=== PATIENT | female | born 1960 | race Hispanic/Latino ===

== ENCOUNTER 2023-11-26 17:30 | Emergency (ER) | payer SELFPAY ==
[2023-11-26 17:46] VITALS: BP 144/63; PULSE 104; RESP 18; TEMP 36.8; O2SAT 99
--- NOTE | 2023-11-26 17:54 | ED.GENADULT ---
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 Patient reports nausea, has vomited twice. Is able to eat and states pain not any worse when eating. Having normal bowel movements. No urinary symptoms. Denies chest pain, shortness of breath. all systems reviewed and negative except as noted above. Related Data Home Medications Medication Instructions Recorded Confirmed atorvastatin 80 mg tablet 80 mg PO DAILY 11/26/23 11/26/23 canagliflozin 300 mg tablet 300 mg PO DAILY 11/26/23 11/26/23 (Invokana) insulin detemir U-100 100 unit/mL 35 unit subcut DAILY 11/26/23 11/26/23 (3 mL) subcutaneous pen (Levemir FlexPen) losartan 25 mg tablet 25 mg PO DAILY 11/26/23 11/26/23 metformin 1,000 mg tablet 1,000 mg PO DAILY 11/26/23 11/26/23 Allergies Allergy/AdvReac Type Severity Reaction Status Date / Time No Known Allergies Allergy Verified 11/26/23 17:49 Review of Systems Review of Systems: CONSTITUTIONAL: Denies fever, chills, or sweats. EYES: Denies visual changes, redness, or discharge. ENT: Denies rhinorrhea, congestion, sore throat, or otalgia. CARDIOVASCULAR: Denies chest pain, palpitations, or edema. RESPIRATORY: Denies cough or dyspnea. GASTROINTESTINAL: Reports right upper quadrant and epigastric abdominal pain, nausea, vomiting. Denies diarrhea. GENITOURINARY: Denies dysuria or hematuria. SKIN: Denies rash or itching. MUSCULOSKELETAL: Denies back pain, joint pain, or myalgia. NEUROLOGIC: Denies headache, numbness, or weakness. PSYCHIATRIC: Denies anxiety or depression. All other systems reviewed are negative, except as documented in HPI. PMFSH Comments At time of signature, agree with nursing past medical, surgical, social and family history. There is no relevant family history pertinent to the presenting complaint. Exam Narrative: GENERAL: This is a well-nourished, well-developed patient, in no apparent distress. HEAD: normocephalic, atraumatic. EYES: PERRL. Sclera clear/white. Vision is grossly intact. EARS: External ears normal NOSE: External nose normal NECK: Neck supple, non-tender without lymphadenopathy, masses or thyromegaly. CARDIOVASCULAR: Regular rate and rhythm without murmurs, gallops, or rubs. RESPIRATORY: Clear to auscultation. Breath sounds equal bilaterally. No wheezes, rales, or rhonchi. GASTROINTESTINAL: Abdomen soft, tenderness to epigastric and right upper quadrant, distended Bowel sounds are active. No hepato-splenomegaly, or palpable masses. SKIN: warm, Dry, intact with no suspicious lesions or rash, good texture and turgor. NEURO: awake, alert, and oriented to person, place and time. There were no obvious focal neurologic abnormalities. EXTREMITIES: No joint tenderness, effusion, or edema noted. Course Course Level of Care: Express Care Visit Vital Signs Vital signs: Vital Signs Temperature 36.8 C 11/26/23 17:46 Pulse Rate 104 H 11/26/23 17:46 Respiratory Rate 18 11/26/23 17:46 Blood Pressure 144/63 H 11/26/23 17:46 Pulse Oximetry 99 11/26/23 17:46 Oxygen Delivery Room Air 11/26/23 17:46 Temperature 36.8 C 11/26/23 17:46 Pulse Rate 104 H 11/26/23 17:46 Respiratory Rate 18 11/26/23 17:46 Blood Pressure 144/63 H 11/26/23 17:46 Pulse Oximetry 99 11/26/23 17:46 Oxygen Delivery Room Air 11/26/23 17:46 reviewed Transfer Transfered to: [place] Transportation: Other ( Private car with her daughter) Transfer rationale: transferring patient to ER for labs, CT scan for right upper and epigastric abdominal pain Accepting physici
== END 2023-11-26 18:00 | disposition short-term general hospital (02) ==
PROVIDERS: Emergency Provider Nurse Practitioner Family
DX: R10.11 Right upper quadrant pain (principal); E11.9 Type 2 diabetes mellitus without complications; Z79.4 Long term (current) use of insulin
CPT/HCPCS: 99212; G0463

== ENCOUNTER 2023-11-26 18:22 | Observation (INO) | payer SELFPAY ==
--- NOTE | ~2023-11-26 | CT_ITS ---
CT of the Abdomen and Pelvis: Indication: Abdominal pain Technique: 2.5 mm axial scans were obtained through the abdomen and pelvis following intravenous adm inistration of 100 cc of Omnipaque 350. Dose reduction technique was used on this scan by utilizing a utomated exposure control and iterative reconstruction technique. The dose-length product (DLP) was 3 88.21 mGy-cm. Findings: Scans through the lung bases are unremarkable. The liver, spleen, pancreas, adrenals and kidneys are within normal limits. Gallbladder is distended, with wall thickening and possible minimal pericholecystic inflammatory change. Probable small stone at the gallbladder neck. There is mild periportal edema. No evidence of aortic aneurysm. No lymphade nopathy. No bowel obstruction or bowel wall thickening. There is no evidence to suggest acute appendicitis. Images through the pelvis were performed. Urinary bladder unremarkable. No adnexal mass seen. No asci lucia. Impression: Distended gallbladder with wall thickening and mild pericholecystic inflammatory change is highly nando picious for acute cholecystitis. Probable small stone at the gallbladder neck. Reviewed, dictated and finalized at [facility]. Impression: Distended gallbladder with wall thickening and mild pericholecystic inflammator y change is highly suspicious for acute cholecystitis. Probable small stone at the gallbladder neck.
[2023-11-26 18:30] VITALS: BP 140/62; PULSE 100; RESP 19; TEMP 36.6; O2SAT 100
[2023-11-26 21:27] LABS: Basophils Percent Auto 0.3 % (0.2-1.2); Eosinophils Absolute Auto 0.1 K/mm3 (0-0.3); Eosinophils Percent Auto 0.8 % (0-4.4); Hemoglobin 10.4 g/dL (12.0-15.0); Immature Granulocyte Absolute 0.04 K/mm3 (0.00-0.031); Immature Granulocyte Percent A 0.3 % (0-0.5); Lymphocytes Absolute Auto 2.92 K/mm3 (0.9-3.2); Lymphocytes Percent Auto 22.7 % (18.3-44.2); Mean Corpuscular HGB Conc 31.5 g/dl (32-36); Mean Corpuscular Hemoglobin 26.5 pg (26-34); Mean Platelet Volume 10.4 fl (7.4-10.4); Monocytes Absolute Auto 1.1 K/mm3 (0.1-0.6); Monocytes Percent Auto 8.5 % (2.6-8.5); Neutrophils Absolute Auto 8.7 K/mm3 (1.3-6.7); Neutrophils Percent Auto 67.4 % (45.5-73.1); Platelet Count Result 203 k/mm3 (150-375); Red Blood Count 3.93 M/mm3 (4.2-5.4); White Blood Count 12.9 K/mm3 (4.5-10.0)
[2023-11-26 21:37] LABS: Alanine Aminotransferase 114 U/L (6-35); Albumin Level 4.1 g/dL (3.5-5.1); Alkaline Phosphatase 96 U/L (38-126); Anion Gap 9 mmol/L (4-12); Aspartate Amino Transferase 85 U/L (14-36); Bilirubin,Total 0.7 mg/dL (0.2-1.3); Blood Urea Nitrogen 8 mg/dL (7-17); Carbon Dioxide 23 mmol/L (22-30); Chloride 103 mmol/L (98-107); Estimated CRCL calculation 102 ml/min; Estimated Glomerular Filt Rate > 60; Glucose 211 mg/dL (65-110); Lipase 166 U/L (23-300); Potassium 3.8 mmol/L (3.4-5.0); Sodium 135 mmol/L (137-145)
[2023-11-26 23:41] LABS: Appearance Urine Clear (Clear); Bacteria Urine None Seen /hpf; Bilirubin Urine Negative (Negative); Blood Urine Negative (Negative); Color Urine Yellow (Yellow); Glucose Urine UA Negative (Negative); Ketones Urine Negative (Negative); Leukocyte Esterase Ur Negative LEU/UL (Negative); Nitrate Urine Negative (Negative); Non Pathogenic Casts 0-2; Protein Urine Trace mg/dL (Negative); RBC Urine 0-2 /hpf (0-2); Specific Grav Ur 1.013 (1.001-1.035); Squamous Epithelial Cell Urine None Seen /hpf (Few); WBC Urine 0-5 /hpf (0-3)
[2023-11-26 23:47] LABS: Add Urine Microscopic? YES
[2023-11-26 23:49] VITALS: BP 131/59; PULSE 90; RESP 19; O2SAT 98
[2023-11-27] MEDS: ONDANSETRON INJ 4 MG/2 ML VIAL IV PUSH ×2 (00:10→08:30)
[2023-11-27] MEDS: SODIUM CHLORIDE 0.9% IV 1,000 ML 999 ML IV CONT (00:10)
[2023-11-27] MEDS: MORPHINE SULFATE (*CRX) 4 MG/ML INJ IV PUSH ×3 (00:10→11:14)
--- NOTE | 2023-11-27 00:53 | ED.ABDPAIN ---
HPI - Abdominal Pain General Chief Complaint: Abdominal Pain Stated Complaint: abdominal pain Time Seen by Provider: 11/26/23 23:07 Source: patient and family Mode of arrival: ambulatory Limitations: no limitations and language barrier History of Present Illness HPI narrative: Patient is a 63-year-old female who presents the ED with report of right-sided abdominal pain. Patient is primarily Georgian speaking. Son at bedside assisted in translation. [employer] public health representative was offered and declined. She reports having pain in her R upper abdomen radiating around to her back since Sunday night. States pain has been constant. No aggravating or alleviating factors. No aggravation with eating. Denies nausea, vomiting, diarrhea, constipation, urinary complaints, fevers. Has never had similar pain. Related Data Home Medications Medication Instructions Recorded Confirmed atorvastatin 80 mg tablet 80 mg PO DAILY 11/26/23 11/26/23 canagliflozin 300 mg tablet 300 mg PO DAILY 11/26/23 11/26/23 (Invokana) insulin detemir U-100 100 unit/mL 35 unit subcut DAILY 11/26/23 11/26/23 (3 mL) subcutaneous pen (Levemir FlexPen) losartan 25 mg tablet 25 mg PO DAILY 11/26/23 11/26/23 metformin 1,000 mg tablet 1,000 mg PO DAILY 11/26/23 11/26/23 Allergies Allergy/AdvReac Type Severity Reaction Status Date / Time No Known Allergies Allergy Verified 11/27/23 03:34 Review of Systems Review of Systems: CONSTITUTIONAL: Denies fever, chills, or sweats. CARDIOVASCULAR: Denies chest pain. RESPIRATORY: Denies dyspnea. GASTROINTESTINAL: See HPI GENITOURINARY: Denies dysuria or hematuria. NEUROLOGIC: Denies headache, dizziness, numbness, or weakness. All systems reviewed & are unremarkable except as noted in HPI and below Exam Narrative: GENERAL: Well appearing, well-nourished, non-toxic, in no acute distress. HEAD: Normocephalic, atraumatic. RESPIRATORY: Airway patent, respirations nonlabored. Clear to auscultation bilaterally, no rales, rhonchi, wheezing. CARDIOVASCULAR: Regular rate and rhythm without murmurs, rubs, or gallops. ABDOMINAL: Soft, mild tenderness in R mid abdomen, more focal tenderness in RUQ, no rebound, nondistended. Normoactive BS. MUSCULOSKELETAL: Moves all extremities. No gross deformities. SKIN: Warm, dry, normal color. NEURO: A&O X3. Speech clear. PSYCHIATRIC: Appropriate mood and affect. Normal interaction. Course Vital Signs Vital signs: Vital Signs Temperature 97.8 F 11/26/23 18:30 Pulse Rate 100 11/26/23 18:30 Respiratory Rate 19 11/26/23 18:30 Blood Pressure 140/62 11/26/23 18:30 Pulse Oximetry 100 11/26/23 18:30 Oxygen Delivery Room Air 11/26/23 18:30 Temperature 97.8 F 11/26/23 18:30 Pulse Rate 94 11/27/23 03:33 Respiratory Rate 19 11/27/23 03:33 Blood Pressure 134/65 11/27/23 03:33 Pulse Oximetry 100 11/27/23 03:33 Oxygen Delivery Room Air 11/26/23 18:30 MDM - Abdominal Pain MDM Narrative Medical decision making narrative: Patient presented to ED with 2 day history of right upper quadrant abdominal pain. No history of similar. No significant associated symptoms or aggravating factors. Vital signs stable upon arrival. Patient in no acute distress. CBC with white blood cell count of 12.9. Mild anemia noted. No recent records to compare to. Patient denies any acute bleeding. CMP with stable electrolytes, stable kidney function. Blood glucose 211. AST and ALT mildly elevated. Normal lipase. Normal bilirubin. Urinalysis without evidence of infection. CT scan of abdomen pelvis was obtained and shows findings consistent with acute cholecystitis. 4mm stone in neck of GB. No ductal dilation. Consistent with clinical picture. Zosyn started in the ED. Discussed case with Dr. Linton, gen surg, agrees w/ plan. Will consult. Will admit under hospitalist service given comorbidities. Discussed case with Dr. Buck, hospitalist, accepted patient for admis
[2023-11-27 00:58] VITALS: BP 144/62; PULSE 102; RESP 18; O2SAT 97
[2023-11-27 03:33] VITALS: BP 134/65; PULSE 94; RESP 19; O2SAT 100
[2023-11-27] MEDS: PIPERACILLN/TAZ 3.375GM/NS50ML 3.375 GM/50 ML BAG IVPB ×3 (03:35→17:44)
[2023-11-27 05:35] VITALS: BP 128/69; PULSE 92; RESP 18; TEMP 36.4; O2SAT 99
--- NOTE | 2023-11-27 05:36 | ADMGEN ---
This patient, Mireya Montesinos, was admitted to [facility] Surg Room 310-01. Patient/family oriented to hospital policies and general routines including ID bracelet, bed and alarms, visiting hours, pain management, procedures, bathroom and other care routines, personal items, smoking policy, room service/diet, and visiting hours. Information on how to activate the Rapid Response Team has been discussed. Patient/Family are encouraged to report perceived risks to care and to ask questions if they do not understand what they are told or what they should do.
[2023-11-27] MEDS: SODIUM CHLORIDE 0.9% IV 1,000 ML 100 ML IV CONT ×2 (06:03→17:44)
[2023-11-27 07:49] LABS: Basophils Percent Auto 0.3 % (0.2-1.2); Eosinophils Absolute Auto 0.2 K/mm3 (0-0.3); Eosinophils Percent Auto 1.7 % (0-4.4); Hematocrit 32.2 % (37.0-47.0); Hemoglobin 9.7 g/dL (12.0-15.0); Immature Granulocyte Absolute 0.02 K/mm3 (0.00-0.031); Immature Granulocyte Percent A 0.2 % (0-0.5); Lymphocytes Absolute Auto 2.26 K/mm3 (0.9-3.2); Lymphocytes Percent Auto 19.7 % (18.3-44.2); Mean Corpuscular HGB Conc 30.1 g/dl (32-36); Mean Corpuscular Hemoglobin 25.9 pg (26-34); Mean Corpuscular Volume 86.1 fl (80-100); Mean Platelet Volume 10.4 fl (7.4-10.4); Monocytes Absolute Auto 0.9 K/mm3 (0.1-0.6); Monocytes Percent Auto 8.2 % (2.6-8.5); Neutrophils Percent Auto 69.9 % (45.5-73.1); Platelet Count Result 208 k/mm3 (150-375); Red Blood Count 3.74 M/mm3 (4.2-5.4); Red Cell Distribution Width 16.8 % (11.5-14.5); White Blood Count 11.5 K/mm3 (4.5-10.0)
[2023-11-27 08:04] LABS: Alanine Aminotransferase 105 U/L (6-35); Albumin Level 3.8 g/dL (3.5-5.1); Alkaline Phosphatase 90 U/L (38-126); Anion Gap 8 mmol/L (4-12); Aspartate Amino Transferase 77 U/L (14-36); Bilirubin,Total 0.9 mg/dL (0.2-1.3); Blood Urea Nitrogen 6 mg/dL (7-17); Calcium 8.9 mg/dL (8.4-10.2); Carbon Dioxide 22 mmol/L (22-30); Chloride 108 mmol/L (98-107); Estimated CRCL calculation 102 ml/min; Estimated Glomerular Filt Rate > 60; Glucose 153 mg/dL (65-110); Lipase 83 U/L (23-300); Potassium 3.7 mmol/L (3.4-5.0); Sodium 138 mmol/L (137-145)
--- NOTE | 2023-11-27 09:35 | PM.CNGS ---
Assessment and Plan Assessment and plan (1) Acute cholecystitis: Code(s): K81.0 - Acute cholecystitis Status: Acute Assessment and Plan: CT with findings consistent with acute cholecystitis with a small gallstone in the neck of the gallbladder. This is consistent with her clinical picture. She continues to have abdominal pain and nausea this morning. Discussed treatment options with the patient including nonoperative management with dietary modifications versus proceeding with a laparoscopic cholecystectomy under general anesthesia. The patient would prefer to proceed with surgery, which seems reasonable given persistent symptoms and likelihood of failing conservative management. Description of the procedure, risks, benefits, alternatives, and expected recovery were discussed with the patient in detail. We discussed the risks of bile leak and bile duct injury, liver/bowel injury, bleeding, and infection. Also discussed the possibility of having to convert to an open procedure if necessary. This conversation was done with the video color straining bag washer since she is Dominican speaking. Will continue IV fluids, NPO status, analgesics as needed, and try adding her onto the surgery schedule. (2) Insulin dependent type 2 diabetes mellitus: Code(s): E11.9 - Type 2 diabetes mellitus without complications; Z79.4 - shelter (current) use of insulin Status: Acute (3) Hypertension: Code(s): I10 - Essential (primary) hypertension Status: Acute Plan I have discussed the patient's case and plan of care with Dr. Linton. Thank you for allowing us to see the patient in consultation and we will continue to follow along with you. History of Present Illness Consult details Consult date: 11/27/23 Reason for consult: other (Acute cholecystitis) Requesting physician: Raven Smith PA-C Narrative: This is a 63-year-old Dominican-speaking female with a history of hypertension and insulin-dependent type 2 diabetes mellitus, who presented to the [place] urgent care yesterday for right upper quadrant abdominal pain. She was then directed to the ER for evaluation last night. The video color straining bag washer was utilized for my entire conversation with the patient. She reports eating pizza for dinner Sunday night, 2 days ago. Shortly after, she developed right upper quadrant abdominal pain. She denies ever having this pain in the past. She reports associated nausea and nonbilious, nonbloody vomiting. Her abdominal pain has remained constant since that time. Her pain is aggravated by deep breathing. In the ED, [place] [address], AST 85, ALT 114, total bilirubin 0.7, alk-phos 96, lipase normal. UA negative. CT scan of the abdomen and pelvis showed a distended gallbladder with wall thickening and mild pericholecystic inflammatory change, with a probable small stone at the gallbladder neck, which is highly suspicious for acute cholecystitis. She was admitted to the hospitalist service and started on IV Zosyn. Our service was consulted for acute cholecystitis. She is now seen on medical floor with her family at the bedside. He is to have significant right upper quadrant pain and again received IV morphine just before my exam to help control her pain. Review of Systems Review of Systems: All systems reviewed & are unremarkable except as noted in HPI and below PMFSH Past Medical History Medical History Hyperlipidemia Hypertension Insulin dependent type 2 diabetes mellitus Surgical History Surgical History History of tubal ligation Social History Social History Smoking status: Never smoker Alcohol intake: never Substance use: never Do You Feel Safe in your Home?: Yes Lack of Transportation: No Lack of Food: Never True Current Hous
--- NOTE | 2023-11-27 09:44 | ECG_ITS ---
SEE SCANNED COPY FOR CONFIRMED REPORT. MTDD
[2023-11-27 11:18] LABS: Glucose Point of Care 113 mg/dl (65-105)
--- NOTE | 2023-11-27 12:21 | PM.IMHP ---
H&P: HPI History of Present Illness Date/Time: 11/27/23 12:21 Chief Complaint: Abdominal pain Narrative: 63yo female with DM and HTN who is mostly Croatian-speaking only here for abdominal pain. The majority of the history is obtained through an officer lieutenant/family in the room. Patient began to right upper quadrant abdominal pain radiating to the back on November 24. The pain began after eating pizza. She has never had this before. She had nausea and vomiting. She also felt feverish with chills. Pain was persistent and constant. She was able to eat over the next 24 hours without significant change in the pain. No diarrhea, dysuria, hematuria, melena or hematochezia. She presented to the emergency room for evaluation. In the emergency room, she was hemodynamically stable. White count was 12.9 K. hemoglobin was 10.4. Sodium 135 with glucose 211. AST 85, ALT 14 otherwise LFTs normal. Lipase 166. UA was negative. CT scan of the abdomen and pelvis showed distended gallbladder with wall thickening and mild pericholecystic inflammatory changes that is highly suspicious for acute cholecystitis. There is probably a small stone in the gallbladder neck. She was given morphine and Zofran. She was started on IV fluids. Blood cultures were collected and started on Zosyn. She is admitted for further care. Review of Systems Review of Systems: All systems reviewed & are unremarkable except as noted in HPI and below PMFSH Past Medical History Medical History Hyperlipidemia Hypertension Insulin dependent type 2 diabetes mellitus Surgical History Surgical History History of tubal ligation Family History Family History Mother Diabetes mellitus Social History Social History (Updated 11/27/23 @ 12:33 by Jaime Kong MD) Social History: Denies hx of tobacco, alcohol or illicit drug use. Lives at home with her and son. Full code. She nominates her son to be the one who would make medical decisions for her if she is unable. Smoking status: Never smoker Alcohol intake: never Substance use: never Do You Feel Safe in your Home?: Yes Lack of Transportation: No Lack of Food: Never True Current Housing: I Have Housing Concerned About Future Housing: No Difficulty Paying Gas/Electric Bills: No Difficulty Paying for Meds: No Currently Unemployed: No Education: Grade School Difficulty w/ Childcare or Family Care: No Spiritual care concerns: No Meds Home Medications and Allergies Home Medications Medication Instructions Recorded Confirmed Type atorvastatin 80 mg tablet 80 mg PO HS 11/26/23 11/27/23 History canagliflozin 300 mg tablet 300 mg PO DAILY 11/26/23 11/27/23 History (Invokana) insulin detemir U-100 100 unit/mL 35 unit subcut HS 11/26/23 11/27/23 History (3 mL) subcutaneous pen (Levemir FlexPen) losartan 25 mg tablet 25 mg PO DAILY 11/26/23 11/27/23 History metformin 1,000 mg tablet 1,000 mg PO BID 11/26/23 11/27/23 History insulin aspart U-100 100 unit/mL 15 unit subcut TIDWM 11/27/23 11/27/23 History (3 mL) subcutaneous pen (Novolog FlexPen U-100 Insulin aspart) liraglutide 0.6 mg/0.1 mL (18 mg/3 1.8 mg subcut DAILY 11/27/23 11/27/23 History mL) subcutaneous pen injector (Victoza 3-Francisco J) Allergies Allergy/AdvReac Type Severity Reaction Status Date / Time No Known Allergies Allergy Verified 11/27/23 03:34 Vital Signs Vital Signs - 24 hr 11/26/23 18:30 11/26/23 23:49 11/27/23 00:58 Temperature 97.8 F Pulse Rate 100 90 102 H Respiratory Rate 19 19 18 Blood Pressure 140/62 131/59 L 144/62 H Pulse Oximetry 100 98 97 Oxygen Delivery Room Air 11/27/23 03:33 11/27/23 05:35 11/27/23 08:00 Temperature 97.6 F Pulse Rate 94 92 Respiratory Rate 19 18 Blood Press
[2023-11-27 14:00] VITALS: BP 132/61; PULSE 83; RESP 16; TEMP 36.3; O2SAT 97
[2023-11-27] MEDS: MORPHINE SULFATE (*CRX) 2 MG/ML INJ IV PUSH (14:38)
[2023-11-27 16:44] LABS: Glucose Point of Care 110 mg/dl (65-105)
[2023-11-27 21:15] VITALS: BP 144/62; PULSE 96; RESP 18; TEMP 38.3; O2SAT 93
[2023-11-27 22:00] VITALS: TEMP 37.2
[2023-11-28] VITALS (11 sets, daily range): BP systolic 99–147; BP diastolic 48–65; PULSE 81–102; RESP 14–19; TEMP 36.1–36.6; O2SAT 93–100
[2023-11-28 00:06] LABS: Glucose Point of Care 168 mg/dl (65-105)
[2023-11-28] MEDS: PIPERACILLN/TAZ 3.375GM/NS50ML 3.375 GM/50 ML BAG IVPB ×2 (00:15→05:14)
[2023-11-28] MEDS: LACTATED RINGERS 1,000 ML 30 ML IV CONT ×2 (07:30→09:37)
[2023-11-28 08:08] LABS: Glucose Point of Care 138 mg/dl (65-105)
--- NOTE | 2023-11-28 08:10 | WPDHPUPDATE1 ---
History and Physical Update Update Date/Time: 11/28/23 08:10 History and Physical has been reviewed, including an updated exam of the patient. There are NO changes in the patient's condition. Risks, benefits, and alternatives have been discussed and questions answered. Patient agrees to proceed with procedure.
--- NOTE | 2023-11-28 08:21 | WPDANESEPPF ---
Anes - Initial Pre Proc Eval Procedure: Operation Date: 11/28/23 08:30 Proposed Procedures p Laparoscopic Cholecystectomy,Possible Open - Marcello Linton DO Date/Time: 11/28/23 08:21 Surgeon: Mirian Buck DO Pre Op Diagnosis: Acute Cholecystitis Patient Data Age: 63 Gender: F Height: 1.52 m Weight: 66 kg Last Vital Signs Temp 36.2 C L 11/28/23 07:45 Pulse 82 11/28/23 07:45 Resp 14 11/28/23 07:45 BP 147/61 H 11/28/23 07:45 Pulse Ox 100 11/28/23 07:45 O2 Del Method Room Air 11/28/23 07:45 Allergies Allergy/AdvReac Type Severity Reaction Status Date / Time No Known Allergies Allergy Verified 11/27/23 03:34 Home Medications Medication Instructions Recorded Confirmed Type atorvastatin 80 mg tablet 80 mg PO HS 11/26/23 11/27/23 History canagliflozin 300 mg tablet 300 mg PO DAILY 11/26/23 11/27/23 History (Invokana) insulin detemir U-100 100 unit/mL 35 unit subcut HS 11/26/23 11/27/23 History (3 mL) subcutaneous pen (Levemir FlexPen) losartan 25 mg tablet 25 mg PO DAILY 11/26/23 11/27/23 History metformin 1,000 mg tablet 1,000 mg PO BID 11/26/23 11/27/23 History insulin aspart U-100 100 unit/mL 15 unit subcut TIDWM 11/27/23 11/27/23 History (3 mL) subcutaneous pen (Novolog FlexPen U-100 Insulin aspart) liraglutide 0.6 mg/0.1 mL (18 mg/3 1.8 mg subcut DAILY 11/27/23 11/27/23 History mL) subcutaneous pen injector (Victoza 3-Francisco J) Laboratory Tests 11/27/23 11/27/23 11/27/23 07:46 11:14 16:41 POC Capillary Glucose 113 H mg/dl 110 H mg/dl (65-105) (65-105) Hemoglobin A1c 7.0 H % (<5.7) 11/27/23 11/28/23 23:57 08:05 POC Capillary Glucose 168 H mg/dl 138 H mg/dl (65-105) (65-105) Hemoglobin A1c Patient hx anesthesia problems: none Family hx anesthesia problems: none Results Review: All pre-operative results and documents have been reviewed as part of the pre-operative evaluation. [facility] Past Medical History Medical History Hyperlipidemia Hypertension Insulin dependent type 2 diabetes mellitus Surgical History Surgical History History of tubal ligation Family History Family History Mother Diabetes mellitus Social History Social History Social History: Denies hx of tobacco, alcohol or illicit drug use. Lives at home with her and son. Full code. She nominates her son to be the one who would make medical decisions for her if she is unable. Smoking status: Never smoker Alcohol intake: never Substance use: never Do You Feel Safe in your Home?: Yes Lack of Transportation: No Lack of Food: Never True Current Housing: I Have Housing Concerned About Future Housing: No Difficulty Paying Gas/Electric Bills: No Difficulty Paying for Meds: No Currently Unemployed: No Education: Grade School Difficulty w/ Childcare or Family Care: No Spiritual care concerns: No Anes - Eval Final PreProcedure Day of Procedure 11/28/23 08:21 Patient weight: overweight Heart: regular rate and rhythm Lungs: clear to auscultation Airway: Mallampati scale class II Neurological: alert and oriented Last oral intake: >/= 8 hours ASA classification: III Emergent: no Anesthetic plan: proceed Anesthesia type and monitoring: general ETT and standard monitoring Results Review: All pre-operative results and documents have been reviewed as part of the pre-operative evaluation. Informed Consent: The patient's anesthetic plan and its attendant risks and benefits were discussed with the patient/family/POA. Questions were solicited and answers provided to the satisfaction of the patient/family/POA.
[2023-11-28] MEDS: BUPIVACAINE/EPINEPHRINE 0.5% 50 ML VIAL 30 ML INFILTRATE (08:58)
--- NOTE | 2023-11-28 09:36 | W.PM.PROC2 ---
Procedure Note - Detailed Date of Procedure 11/28/23 Pre-op Diagnosis Acute Cholecystitis Post-op Diagnosis Same Procedure Performed Laparoscopic Cholecystectomy Surgeon Marcello Linton, DO Anesthesia General and Local (0.5% bupivacaine) Indications This is a 63-year-old woman who presented to the emergency department with right upper quadrant pain. Her workup in the emergency department showed an elevated white blood count and findings on CT consistent with acute calculous cholecystitis. She was admitted for further treatment. Discussions were made with the patient about treatment options and decision was made to proceed with laparoscopic cholecystectomy, possible open. Findings Laparoscopic cholecystectomy was performed. The patient's gallbladder appeared distended with gallbladder wall thickening, hyperemia, and edema. The gallbladder had to be decompressed in order to grasp it. The cystic duct appeared normal in size. The gallbladder was removed and sent to the lab for pathology. There was some bleeding along the liver bed as the gallbladder was removed secondary to all of the inflammation. Surgiflo was sprayed around this region to help with hemostasis. Description of Procedure Procedure as well as risks, benefits, and alternatives were discussed with patient. Written consent was obtained and placed in chart prior to procedure. The patient was brought back to surgical suite. Patient was placed in supine position on operating table. Time-out was done to confirm patient and procedure. Patient was then intubated by the anesthesia department. Abdomen was prepped and draped in sterile fashion using chlorhexidine prep. 0.5% bupivacaine with epinephrine was infiltrated at each site of incision. A 5 millimeter incision was made near the umbilicus, and a 5 millimeter Optiview trocar was advanced through the abdominal layers under direct visualization. Once inside the abdominal cavity, carbon dioxide was insufflated to create a pneumoperitoneum. The camera was inserted and the abdomen was inspected. No immediate abnormalities were identified. The patient was placed in reverse Trendelenburg position and rotated slightly to the left. An 11 millimeter incision was made in the subxiphoid region, and an 11 millimeter trocar was inserted under direct visualization. Two 5 millimeter incisions were made in the right upper quadrant, and two 5 millimeter trocars were inserted under direct visualization. The gallbladder was identified and grasped at the fundus and retracted superiorly. It was then grasped at the infundibulum retracted laterally. Careful dissection around the neck of the gallbladder was performed using blunt dissection with a [place] grasper and hook electrocautery. The cystic duct was identified, and a window was created behind it. The cystic artery was also identified and a window was created behind it. The critical view of safety was identified, visualizing the cystic duct running directly into the neck of the gallbladder, and the cystic artery running directly into the wall of the gallbladder. A 5 millimeter clip junior net developer was then used to place 2 clips proximally and 1 clip distally on both the cystic duct and cystic artery. They were then both transected using endoscopic scissors. Once safely away from the khushi hepatitis, the gallbladder was dissected free from the liver bed using hook electrocautery. Hemostasis was achieved along the way. The gallbladder was removed completely and then removed through the subxiphoid port. The liver bed was then inspected. Hemostasis appeared adequate, and our clips appeared secure. The area was gently irrigated with sterile saline. No other abnormalities were seen. The patient was flattened out in bed, and 1 final inspection was made around the abdominal cavity. The subxiphoid port was removed, and a Ayaz Aracelis cone was used to approximate the fascia with an 0-Vicryl simple interrupted suture
[2023-11-28 09:44] LABS: Glucose Point of Care 153 mg/dl (65-105)
[2023-11-28] MEDS: fentaNYL CITRATE INJ (*CRX) 100 MCG/2 ML VIAL 25 MCG IV PUSH ×2 (09:57→10:05)
[2023-11-28] MEDS: LACTATED RINGERS 1,000 ML 100 ML IV CONT (10:49)
[2023-11-28] MEDS: MORPHINE SULFATE (*CRX) 4 MG/ML INJ IV PUSH (10:51)
[2023-11-28 11:23] LABS: Glucose Point of Care 165 mg/dl (65-105)
--- NOTE | 2023-11-28 13:35 | PM.IMPN ---
Progress Note: A&P Assessment and Plan (1) Acute cholecystitis: Code(s): K81.0 - Acute cholecystitis Status: Acute Assessment and Plan: Patient presents with abdominal pain after eating a fatty meal and found to have findings consistent with acute cholecystitis. She also has a 4 mm stone in the neck of the gallbladder which is probably causing her consistent right upper quadrant pain. LFTs have improved on repeat. White count is trending downward. Blood cultures are pending. General surgery has been consulted and patient now s/p laparoscopic cholecystectomy earlier today. She has tolerated the procedure well. Start diet when okay with surgery. Monitor fever curve. Contineu Zosyn (2) Insulin dependent type 2 diabetes mellitus: Code(s): E11.9 - Type 2 diabetes mellitus without complications; Z79.4 - intermediate (current) use of insulin Status: Acute Assessment and Plan: Patient with diabetes and takes Invokana, Levemir, metformin, Victoza and NovoLog at mealtimes. A1c 7.0. The patient's blood glucose was reviewed on 11/27 Glucose remains well controlled. Continue AccuCheks covering with sliding scale. Hypoglycemia protocol available as needed. Continue to monitpr (3) Hypertension: Code(s): I10 - Essential (primary) hypertension Status: Acute Assessment and Plan: Patient's blood pressure was reviewed on 11/27 Blood pressure remains well controlled. Will continue to monitor Plan DVT prophylaxis -SCDs Code status -full Subjective Date/time seen: 11/28/23 13:35 Interval history: 63yo female with DM and HTN who is mostly Yakut-speaking only here for abdominal pain.?? Back from surgery. Had fever overnight. Abd pain mild. No CP or SOB. No n/v. No flatus or BM since surgery Exam Narrative: Tm 101.0 97.2 122/50 96 18 96% ra Gen - NARD Chest - CTA bilaterally CV - RRR S1/S2 Abd - soft. Multiple small incisions that are clean, dry and intact. Hypoactive bowel sounds. Ext - no pedal edema Psych - normal mood and affect. Skin - warm and dry. Objective Data Vital Signs Vital Signs: Vital Signs - 24 hr 11/27/23 14:00 11/27/23 21:15 11/27/23 22:00 Temperature 97.3 F L 101.0 F H 98.9 F Pulse Rate 83 96 Respiratory Rate 16 18 Blood Pressure 132/61 144/62 H Pulse Oximetry 97 93 Oxygen Delivery Oxygen Flow Rate 11/28/23 04:15 11/28/23 07:45 11/28/23 09:37 Temperature 97.1 F L 97.2 F L Pulse Rate 95 82 87 Respiratory Rate 16 14 18 Blood Pressure 138/58 L 147/61 H 99/58 L Pulse Oximetry 95 100 98 Oxygen Delivery Room Air Simple Face Mask Oxygen Flow Rate 10 11/28/23 09:45 11/28/23 10:00 11/28/23 10:15 Temperature Pulse Rate 94 102 H 100 Respiratory Rate 19 16 18 Blood Pressure 117/61 103/57 L 122/58 L Pulse Oximetry 99 94 93 Oxygen Delivery Room Air Room Air Room Air Oxygen Flow Rate 11/28/23 10:38 11/28/23 11:10 11/28/23 12:10 Temperature 97 F L 97.2 F L 97.2 F L Pulse Rate 100 92 96 Respiratory Rate 18 18 18 Blood Pressure 131/50 L 124/51 L 122/50 L Pulse Oximetry 96 94 96 Oxygen Delivery Oxygen Flow Rate Intake/Output Intake/Output: Intake & Output 11/25/23 11/26/23 11/27/23 11/28/23 23:59 23:59 23:59 23:59 Intake Total 2390 1326.5 Output Total 800 Balance 2390 526.5 Meds/Results Medications: Active Medications Generic Name Dose Route Start Last Admin Trade Name Freq PRN Reason Stop Dose Admin Acetaminophen 500 mg 11/28/23 10:25 Acetaminophen 500 Mg Tablet PO Q6H PRN Pain Rated 1-3 Hydrocodone Bitart/Acetaminophen 1 tab 11/28/23 10:25 Hydrocodone/Acetaminophen (*Crx) 5-325 Mg Tablet PO Q4H PRN Pain Rated 4-6 Hydrocodone Bitart/Acetaminophen 1 tab 11/28/23 10:25 Hydrocodone/Acetaminophen (*Crx) 7.5-325 Mg Tablet PO Q4H PRN Pain Rated 7-10 Dextrose 12.5 gm 11/27/23 12:39 Dextrose 50% 25 Gm/50 Ml Syr
[2023-11-28] MEDS: HYDROcodone/acetaminophen (*CRX) 7.5-325 MG TABLET 1 TAB PO ×2 (14:56→20:12)
[2023-11-28 16:58] LABS: Glucose Point of Care 254 mg/dl (65-105)
--- NOTE | 2023-11-28 19:43 | PM.DS ---
DS: Admitting Diagnosis Discharge Date 11/28/23 Admitting Diagnosis Abdominal pain DS: Discharge Diagnosis Discharge Diagnosis (1) Acute cholecystitis: Code(s): K81.0 - Acute cholecystitis Status: Acute (2) Insulin dependent type 2 diabetes mellitus: Code(s): E11.9 - Type 2 diabetes mellitus without complications; Z79.4 - halfway (current) use of insulin Status: Acute (3) Hypertension: Code(s): I10 - Essential (primary) hypertension Status: Acute DS: Summary Hospital Course Reason for hospitalization: 63yo female with DM and HTN who is mostly Thai-speaking only here for abdominal pain.?? Please see H&P for details Hospital Course: Patient presents with abdominal pain after eating a fatty meal and found to have findings consistent with acute cholecystitis.? She also has a 4 mm stone in the neck of the gallbladder which is probably causing her consistent right upper quadrant pain.? LFTs have improved on repeat.? White count trended downward.? Blood cultures are NGTD. General surgery was consulted and patient underwent laparoscopic cholecystectomy on 11/28/23.? She tolerated the procedure well. She was started on clear liquids and easily advanced to low fat diet. She did have fever felt related to acute cholecystitis but no concerning findings during surgery to require continued abx use. Hgb A1c 7.0.? The patient's blood glucose was monitored with AccuCheks covering with sliding scale.? Hypoglycemia protocol was available as needed.?Her home medications were held with plans to resume when eating. She overal ldid well and wa able to be dicharged home on 11/28/23 Status at Discharge Cognitive/behavioral status at discharge: stable Time Spent with Patient Time attestation: Total time spent providing and/or coordinating discharge services: 35 minutes Time spent: Greater than 30 minutes Exam Narrative: Tm 101.0 97.2 122/50 96 18 96% ra Gen - NARD Chest - CTA bilaterally CV - RRR S1/S2 Abd - soft. Multiple small incisions that are clean, dry and intact. Hypoactive bowel sounds. Ext - no pedal edema Psych - normal mood and affect. Skin - warm and dry. DS: Data Data Completed and Pending Pending studies at discharge: Pending at discharge 11/28/23 08:57 Surgical [PTH] Routine Labs on day of discharge: Labs from last 24 hours 11/28/23 11/28/23 11/28/23 16:55 11:19 09:43 POC Capillary Glucose 254 H 165 H 153 H 11/28/23 11/27/23 08:05 23:57 POC Capillary Glucose 138 H 168 H Preliminary micro results at discharge 11/27/23 03:18 Blood Culture - Preliminary Blood 11/27/23 03:18 Blood Culture - Preliminary Blood Discharge Plan Discharge Attending physician on discharge: Jaime Kong Consulting providers: Raven Smith; Marcello Rodriguez Discharging Clinician: Jaime Kong Anticipated Discharge Date/Time: 11/28/23 19:48 Patient Disposition: Home, Self-Care Activity: may shower and other - see discharge instructions Diet: diabetic and low fat Wound Care Instructions: incision open to air Discharge Instructions: DISCHARGE INSTRUCTION SHEET FOR HERNIA, GALLBLADDER AND APPENDIX SURGERIES DR. RODRIGUEZ 1. May shower in 24 hours, no soaking in bath x 2weeks. 2. Call office for: Wound increasingly painful or bleeding Vomiting Fever of greater than 101 degrees 3. If no bowel movement for three days, take 1 oz. (30 ml) Milk of Magnesia or MiraLax 17g 1 to 2 times daily. 4. No heavy lifting > 10-15 pounds x 2 weeks for laparoscopic cholecystectomy or appendectomy. 5. No driving for 3 days or while taking narcotic pain medications. 6. Ice to surgical site for 48 hours (30 min on, then 30 min off). 7. Up walking 10-30 minutes three times per day. 8. Resume previous home medications. 9. Follow-up 10-14 days in offic
--- NOTE | 2023-11-29 12:39 | WPDANESPN ---
Anes - Prog Note Post-Op Date/Time: 11/29/23 12:39 Cardiovascular status: normal Respiratory status: normal Airway patency: baseline Mental status: baseline Post-Op hydration status: normal Vital Signs: Last Vital Signs Temp 97.9 F 11/28/23 20:10 Pulse 81 11/28/23 20:10 Resp 16 11/28/23 20:10 BP 122/65 11/28/23 20:10 Pulse Ox 96 11/28/23 20:10 O2 Del Method Room Air 11/28/23 10:15 O2 Flow Rate 10 11/28/23 09:37 Pain Score (VAS): 0/10 I/O: Intake & Output 11/28/23 11/29/23 11/29/23 23:59 07:59 15:59 Intake Total 640 Balance 640 Laboratory Tests 11/27/23 07:43 11/27/23 07:43 11/28/23 16:55 POC Capillary Glucose 254 H Post-procedural complaints: none Patient Feedback: Patient satisfied with anesthetic care.
--- NOTE | 2023-12-03 09:44 | PC.NURSE ---
Blood cx is negative. Dr. Dilan swain.
== END 2023-11-28 20:50 | disposition home or self-care (01) ==
LOC: ANHED 11-27 02:52 → ANH3MEDSUR 11-27 04:28
PROVIDERS: Emergency Medicine; Internal Medicine; Surgery; Admitting Provider Internal Medicine; Emergency Provider Physician Assistant; Visit Provider Internal Medicine
PROC: 0FT44ZZ Resection of Gallbladder, Percutaneous Endoscopic Approach (ICD-10-PCS; CPT 47562; principal; 2023-11-28 08:30)
DX: K81.0 Acute cholecystitis (principal); E11.9 Type 2 diabetes mellitus without complications; I10 Essential (primary) hypertension; E78.5 Hyperlipidemia, unspecified; Z79.84 Long term (current) use of oral hypoglycemic drugs; Z79.4 Long term (current) use of insulin; Z79.85 Long-term (current) use of injectable non-insulin antidiabetic drugs
CPT/HCPCS: 47562; 36415; 74177; 80053; 81001; 82948; 83036; 83690; 85025; 87040; 88304; 93005; 96361; 96365; 96375; 96376; 99285; A9270; G0378; J0330; J1100; J1170; J2250; J2270; J2371; J2405; J2543; J2704; J3010; J7030; J7120; Q9967